=== PATIENT | male | born 1985 | race Caucasian/White ===

== ENCOUNTER 2017-07-30 03:30 | Emergency (ER) | payer SELFPAY ==
[~2017-07-30] VITALS: Ht 175.3 cm; Wt 100.0 kg
[2017-07-30 03:34] VITALS: BP 132/85; PULSE 118; RESP 17; TEMP 97.5; O2SAT 99
--- NOTE | 2017-07-30 04:49 | PD ---
HPI Chief Complaint: Fall Time Seen by Provider: 04:47 Travel History International Travel<30 days: No Contact w/Intl Traveler<30days: No Traveled to known affect area: No History of Present Illness HPI 31-year-old white male presents emergency department with complaints of a scalp laceration. The patient allegedly had tripped and fell hitting the back of his head earlier in the evening. He denies syncope. He denies numbness, tingling or weakness. No neck or back pain. Not up-to-date with immunizations. PFSH Past Medical History Medical History: Denies Significant Hx Tetanus Vaccination: > 5 Years Influenza Vaccination: No Past Surgical History Abdominal Surgery: Yes (hernia repair) Social History Alcohol Use: Yes (2-3 beers daily) Tobacco Use: No Substance Use: No Allergies-Medications (Allergen,Severity, Reaction): Coded Allergies: Penicillins (Verified Allergy, Unknown, 07/30/17) amoxicillin (Verified Allergy, Unknown, 07/30/17) Reported Meds & Prescriptions Reported Meds & Active Scripts Active No Active Prescriptions or Reported Medications Review of Systems General / Constitutional: No: Fever Eyes: No: Visual changes HENT: No: Headaches Cardiovascular: No: Chest Pain or Discomfort Respiratory: No: Shortness of Breath Gastrointestinal: No: Abdominal Pain Genitourinary: No: Dysuria Musculoskeletal: No: Pain Skin: No Rash Neurologic: No: Weakness Psychiatric: No: Depression Endocrine: No: Polydipsia Hematologic/Lymphatic: No: Easy Bruising Physical Exam Narrative GENERAL: Well-developed, well-nourished in no apparent distress. Nontoxic appearing. HEAD: Normocephalic, there is a 4 cm laceration to the posterior occiput. No bony step-off. EYES: Pupils equal round and reactive. Extraocular motions intact. No scleral icterus. No injection or drainage. ENT: Nose clear. Throat without erythema, tonsillar hypertrophy or exudate. Uvula midline. Airway patent. NECK: Trachea midline. Supple, nontender, moves head freely. No central bony tenderness or spasm. CARDIOVASCULAR: Regular rate and rhythm without murmurs, gallops, or rubs. RESPIRATORY: Clear to auscultation. Breath sounds equal bilaterally. No wheezes , rales, or rhonchi. GASTROINTESTINAL: Abdomen soft, non-tender, nondistended. No hepato-splenomegaly , or palpable masses. No guarding. EXTREMITIES: No clubbing, cyanosis, or edema. No joint tenderness. BACK: Nontender without deformity. No flank tenderness. NEUROLOGICAL: Awake, alert and oriented x 3 .Cranial nerves grossly intact. Motor and sensory grossly within normal limits. Normal speech. Data Data Last Documented VS Vital Signs Date Time Temp Pulse Resp B/P (MAP) Pulse Ox O2 Delivery O2 Flow Rate FiO2 07/30/17 03:34 97.5 118 17 132/85 (101) 99 Orders Orders Ed Discharge Order (07/30/17 04:47) MDM Medical Decision Making Medical Screen Exam Complete: Yes Emergency Medical Condition: Yes Medical Record Reviewed: Yes Differential Diagnosis MDM: High Differential diagnoses: Fracture, sprain, strain, dislocation, contusion, neurovascular injury Narrative Course Patient's scalp lacerations closed with bertha Procedures Procedure Narrative LACERATION LOCATION: Posterior occiput LENGTH: 4 cm NUMBER OF STITCHES/BERTHA: 7 REPAIR: The area of the laceration was prepped with Betadine and sterilely draped. the wound was copiously irrigated and explored without evidence of foreign body, tendon injury or neurovascular injury. The wound was closed using bertha. This was a simple single layer repair. A sterile dressing was applied. The patient was advised to keep the dressing clean and dry. Patient tolerated the procedure well. Diagnosis Primary Impression: Scalp laceration Additional Impression: Scalp contusion Patient Instructions: General Instructions Additional Instructions: Rest. Head precautions. Tylenol for pain. Ice packs. Avoid alcohol. Daily wound care with soap, water, Neosporin. Stables out in 9 days. Avoid all sedating or intoxicating substances. Recheck with your physician within 3-5 days. Return to the ER for any problems. Med/Other Pt SpecificInfo: No Meds Exist/No RX given, Wound Care Scripts No Active Prescriptions or Reported Meds Disposition: 01 DISCHARGE HOME Condition: Stable Javier Richards Jul 30, 2017 04:49
--- NOTE | 2017-07-30 04:59 | PD ---
HPI Chief Complaint: Fall Time Seen by Provider: 04:19 Travel History International Travel<30 days: No Contact w/Intl Traveler<30days: No Traveled to known affect area: No History of Present Illness HPI 31-year-old male complains of laceration to the back of the head. Patient denies loss of consciousness. Patient complains of sharp pain burning pain in the back of the head around the laceration site. Patient denies any visual change. Patient denies any nausea vomiting. Patient denies any neck pain. Patient denies any other injury. Patient states that he is up-to-date with TD booster. Patient states that the laceration happened about 8 hours ago. PFSH Past Medical History Medical History: Denies Significant Hx Tetanus Vaccination: > 5 Years Influenza Vaccination: No Past Surgical History Abdominal Surgery: Yes (hernia repair) Social History Alcohol Use: Yes (2-3 beers daily) Tobacco Use: No Substance Use: No Allergies-Medications (Allergen,Severity, Reaction): Coded Allergies: Penicillins (Verified Allergy, Unknown, 07/30/17) amoxicillin (Verified Allergy, Unknown, 07/30/17) Reported Meds & Prescriptions Reported Meds & Active Scripts Active No Active Prescriptions or Reported Medications Review of Systems General / Constitutional: No: Fever Eyes: No: Visual changes HENT: No: Headaches Cardiovascular: No: Chest Pain or Discomfort Respiratory: No: Shortness of Breath Gastrointestinal: No: Abdominal Pain Genitourinary: No: Dysuria Musculoskeletal: No: Pain Skin: No Rash Neurologic: No: Weakness Psychiatric: No: Depression Endocrine: No: Polydipsia Hematologic/Lymphatic: No: Easy Bruising Physical Exam Narrative GENERAL: Well-nourished, well-developed patient. SKIN: Focused skin assessment warm/dry. HEAD: Normocephalic. Patient has 5 cm laceration on the occiput area of the scalp. No active bleeding. EYES: No scleral icterus. No injection or drainage. Pupil 2 mm equal reactive. NECK: Supple, trachea midline. No JVD or lymphadenopathy. CARDIOVASCULAR: Regular rate and rhythm without murmurs, gallops, or rubs. RESPIRATORY: Breath sounds equal bilaterally. No accessory muscle use. GASTROINTESTINAL: Abdomen soft, non-tender, nondistended. MUSCULOSKELETAL: No cyanosis, or edema. BACK: Nontender without obvious deformity. No CVA tenderness. Neurologic exam normal. Data Data Last Documented VS Vital Signs Date Time Temp Pulse Resp B/P (MAP) Pulse Ox O2 Delivery O2 Flow Rate FiO2 07/30/17 03:34 97.5 118 17 132/85 (101) 99 MDM Medical Decision Making Medical Screen Exam Complete: Yes Emergency Medical Condition: Yes Differential Diagnosis Differential diagnosis including scalp laceration, skull fracture, intracranial hemorrhage. Narrative Course 31-year-old male with scalp laceration. Diagnosis Primary Impression: Scalp laceration Qualified Codes: S01.01XA - Laceration without foreign body of scalp, initial encounter Patient Instructions: General Instructions Additional Instructions: Wound care daily. Head trauma instructions given. Return in 7 days for staple removal. Med/Other Pt SpecificInfo: No Meds Exist/No RX given Scripts No Active Prescriptions or Reported Meds Disposition: 01 DISCHARGE HOME Condition: Stable Max Irene MD Jul 30, 2017 04:59
[2017-07-30] MEDS ORDERED: TETANUS/DIPHTHERIA TOXOID ADULT 0.5 ML VIAL IM ONE (05:00)
== END 2017-07-30 05:13 | disposition home or self-care (01) ==
LOC: NEPE 03:30
DX: S01.01XA Laceration without foreign body of scalp, initial encounter (principal); W01.0XXA Fall on same level from slipping, tripping and stumbling without subsequent striking against object, initial encounter; Z23 Encounter for immunization
CPT/HCPCS: 12002; 90471; 90714

== ENCOUNTER 2017-08-09 14:40 | Emergency (ER) | payer BC ==
[~2017-08-09] VITALS: Ht 175.3 cm; Wt 100.0 kg
[2017-08-09 15:09] VITALS: BP 165/88; PULSE 80; RESP 17; TEMP 97.9; O2SAT 98
--- NOTE | 2017-08-09 15:31 | PD ---
HPI Chief Complaint: Wound/Suture/Staple Re-Check Time Seen by Provider: 15:14 Travel History International Travel<30 days: No Contact w/Intl Traveler<30days: No Traveled to known affect area: No History of Present Illness HPI Patient is a 31-year-old male presenting to the emergency department to have bertha removed. Patient had bertha placed on July 30, he has no other complaints at this time. He denies any swelling, redness, drainage. He has no complaints of pain. [facility] Past Medical History Medical History: Denies Significant Hx Past Surgical History Abdominal Surgery: Yes (hernia repair) Social History Alcohol Use: Yes (2-3 beers daily) Tobacco Use: No Substance Use: No Allergies-Medications (Allergen,Severity, Reaction): Coded Allergies: Penicillins (Verified Allergy, Unknown, 08/09/17) amoxicillin (Verified Allergy, Unknown, 08/09/17) Reported Meds & Prescriptions Reported Meds & Active Scripts Active No Active Prescriptions or Reported Medications Review of Systems Except as stated in HPI: all other systems reviewed are Neg Skin: Positive Other Physical Exam Narrative GENERAL: Well-developed, well-nourished, alert male. Presenting in no acute distress. SKIN: Warm and dry. 7 intact bertha to patient's posterior scalp. No swelling , redness, exudate. Betrha are well approximated. Wound appears well-healed. HEAD: Normocephalic. EYES: No scleral icterus. No injection or drainage. NECK: Supple, trachea midline. No JVD or lymphadenopathy. CARDIOVASCULAR: Regular rate and rhythm without murmurs, gallops, or rubs. RESPIRATORY: Breath sounds equal bilaterally. No accessory muscle use. Data Data Last Documented VS Vital Signs Date Time Temp Pulse Resp B/P (MAP) Pulse Ox O2 Delivery O2 Flow Rate FiO2 08/09/17 15:09 97.9 80 17 165/88 (113) 98 Orders Orders Ed Discharge Order (08/09/17 15:30) MDM Medical Decision Making Medical Screen Exam Complete: Yes Emergency Medical Condition: Yes Medical Record Reviewed: Yes Interpretation(s) Vital Signs Date Time Temp Pulse Resp B/P (MAP) Pulse Ox O2 Delivery O2 Flow Rate FiO2 08/09/17 15:09 97.9 80 17 165/88 (113) 98 Differential Diagnosis Cellulitis versus normal healing versus wound dehiscence versus other Narrative Course Patient is well-appearing 31-year-old male presenting to have bertha removed from his scalp. Wound is well-healed and well approximated. 7 bertha were removed without difficulty. Patient tolerated well, he was encouraged to wash his hair he normally would. He was encouraged to follow-up with his primary doctor or return to emergency department for any new worsening symptoms. Patient verbalized understanding of these instructions. Patient stable for discharge. Diagnosis Primary Impression: Encounter for staple removal Referrals: Primary Care Physician Patient Instructions: General Instructions Additional Instructions: Follow up with your primary doctor Wash hair as you normally do Return to the ED for any new or worsening symptoms. Med/Other Pt SpecificInfo: No Change to Meds Scripts No Active Prescriptions or Reported Meds Disposition: 01 DISCHARGE HOME Condition: Stable Ruma eMza Aug 09, 2017 15:31
== END 2017-08-09 15:49 | disposition home or self-care (01) ==
LOC: NEPD 14:40
DX: Z48.02 Encounter for removal of sutures (principal); Z88.0 Allergy status to penicillin
CPT/HCPCS: 99281